=== PATIENT | male | born 1975 | race Caucasian/White ===

== ENCOUNTER 2017-03-12 16:04 | Emergency (ER) | payer OTHER ==
[~2017-03-12] VITALS: Ht 180.3 cm; Wt 102.0 kg
[~2017-03-12 16:04] MED LIST: FAMO-63 PO; HYDR-971 PO; LORA0.5T96 PO; METH-37 PO; ONDA4TAB10 SL; PRED20TA PO
[2017-03-12 16:14] VITALS: BP 128/79
[2017-03-12] MEDS ORDERED: HYDROmorphone PF 1 MG/ML DISP.SYRIN IV ONE (17:00)
--- NOTE | 2017-03-12 17:01 | PHYS DOC ---
Past History Past Medical History: No Pertinent History Past Surgical History: Other Alcohol Use: None Drug Use: None Adult General Chief Complaint Chief Complaint: LOWER EXT PAIN HPI HPI 41-year-old male presenting to the emergency department today with left lower extremity pain. 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 He complains of pain in his calf that radiates up the leg. It is a mild to moderate pain worse with walking. It is associated with mild leg swelling. He notes a small rash on the left lateral side of his leg. No specific timing present. He is currently on IV antibiotics for his postsurgical care. He is on ceftriaxone. Review of systems is negative for fevers chills nausea vomiting diarrhea. He denies numbness weakness or tingling. All other review of systems is negative unless otherwise noted in history of present illness. Pertinent physical exam findings show a minimally swollen left leg with tenderness along the calf. There is no tenderness in the popliteal region or in the groin venous system. The knee is similar in temperature to the contralateral. There is small very faint hardly noticeable redness just inferior to the lateral head of the fibula. ED course: 41-year-old male presenting to the emergency department with leg pain and swelling after surgery. Duplex ultrasound and x-ray obtained. The patient was then discharged home in stable condition to follow up with their primary care physician over the next 2-3 days. They were to return if their symptoms worsened or if they were concerned for any reason. [id number] discharge instructions and return precautions were given. Patient's questions were answered to their satisfaction. Patient is comfortable plan. Review of Systems Review of Systems SEE ABOVE. Current Medications Current Medications Current Medications Medications (Trade) Dose Ordered Sig/[facility] Start Time Stop Time Status Last Admin Dose Admin Hydromorphone HCl (Dilaudid) 0.5 mg 1X ONCE 03/12/17 17:00 03/12/17 17:01 Allergies Allergies Allergies Coded Allergies Type Severity Reaction Last Updated Verified amoxicillin Allergy Unknown 03/12/17 Yes doxycycline Adverse Reaction Intermediate 10/18/16 Yes Physical Exam Physical Exam Constitutional: Well developed, well nourished, no acute distress, non-toxic appearance. HENT: Normocephalic, atraumatic, bilateral external ears normal, oropharynx moist, no oral exudates, nose normal. Eyes: PERRLA, EOMI, conjunctiva normal, no discharge. [] Neck: Normal range of motion, no tenderness, supple, no stridor. Cardiovascular:Heart rate regular rhythm, no murmur [] Lungs & Thorax: Bilateral breath sounds clear to auscultation Abdomen: Bowel sounds normal, soft, no tenderness, no masses, no pulsatile masses. [] Skin: Warm, dry, no erythema, no rash. Back: No tenderness, no CVA tenderness. [] Extremities: see above. neurovasc intact Neurologic: Alert and oriented X 3, normal motor function, normal sensory function, no focal deficits noted. Psychologic: Affect normal, judgement normal, mood normal. [] Current Patient Data Vital Signs Vital Signs Date Time Temp Pulse Resp B/P (MAP) Pulse Ox O2 Delivery O2 Flow Rate FiO2 03/12/17 16:14 98.2 88 20 99 Room Air EKG EKG [] Radiology/Procedures Radiology/Procedures [] Left knee x-ray obtained shows no obvious fracture or dislocation. Course & Med Decision Making Course & Med Decision Making Pertinent Labs and Imaging studies reviewed. (See chart for details) [] Dragon Disclaimer Dragon Disclaimer This chart was dictated in whole or in part using Voice Recognition software in a busy, high-work load, and often noisy Emergency Department environment. It may contain unintended and wholly unrecognized errors or omissions. Departure Departure: Impression: Primary Impression: Left leg pain Disposition: 01 HOME, SELF-CARE Condition: STABLE Referrals: MORE [facility]INO (PCP) Patient Instructions: Leg Cramps Additional Instructions: Thank you for allowing us to participate in your care today. Followup with your primary care physician in 3 days if your symptoms do not improve. If you do not have a primary care provider you can ask for a list of our primary care providers. Return to the emergency department you have any new or concerning findings. This should be evaluated by the primary care physician and any necessary consulting services for continued management within a few days after discharge. Return to emergency room if you have any new or concerning symptoms including but not limited to fever, chills, nausea, vomiting, intractable pain, any new rashes, chest pain, shortness of air, uncontrolled bleeding, difficulty breathing, and/or vision loss. KAILEY YADAV MD March 12, 2017 17:01
--- NOTE | 2017-03-12 17:28 | RAD ---
Examination: Ultrasound left lower extremity venous duplex HISTORY: History of left calf pain COMPARISON: None available TECHNIQUE: Grayscale, color Doppler 2D, spectral waveform analysis of the left lower extremity venous system were performed. Findings : The left common femoral vein, superficial femoral vein, popliteal vein demonstrated normal compression and augmentation of flow. The visualized calf veins are patent. IMPRESSION: No evidence of deep venous thrombosis identified in the visualized left lower extremity venous system. Electronically signed by: Wilmer Melgoza MD (03/12/2017 5:25 PM)
[2017-03-12] MEDS ORDERED: HYDROmorphone PF 1 MG/ML DISP.SYRIN IM ONE (17:30)
--- NOTE | 2017-03-13 08:17 | RAD ---
Indication pain. No history of injury. AP oblique and lateral views of the left knee were obtained. No bony abnormality is seen
== END 2017-03-12 18:00 | disposition home or self-care (01) ==
LOC: ER 16:04
DX: M79.662 Pain in left lower leg (principal); R21 Rash and other nonspecific skin eruption; Z88.1 Allergy status to other antibiotic agents
CPT/HCPCS: 73562; 93971; 96372; 99284; J1170